=== PATIENT | male | born 1965 | race Caucasian/White ===

== ENCOUNTER 2024-02-01 07:48 | Outpatient (CLI) | payer OTHER, SELFPAY ==
--- NOTE | 2024-02-01 08:01 | CT_ITS ---
WS: [id number] CT LUMBAR SPINE, noncontrast. HISTORY: LOW BACK PAIN RADIATING DOWN THE LEGS TECHNIQUE: Contiguous 2.0 mm axial imaging are performed. Sagittal and coronal reformats are submitte d and reviewed. All CT scans at [facility] use at least one of these dose optimization techni ques: automated exposure control; mA and/or kV adjustment per patient size (includes targeted exams w here dose is matched to clinical indication); or iterative reconstruction. IV contrast: None DLP: 1295.50 mGy.cm COMPARISON: None available. 3.5 mm retrolisthesis of L2. 2 mm retrolisthesis of L1. L4 anterolisthesis by less than 2 mm. Disc sp aces are very mildly narrowed. No fractures. No pars defects. L1-2: No stenosis. Bilateral mild facet arthritis. L2-3: Mild annular disc bulging encroaching upon the subarticular recesses and central canal. No fora joseph stenosis. L3-4: Mild annular disc bulging encroaching upon the ventral thecal sac and subarticular recesses. Bi lateral facet joint arthritis and RIGHT ligamentum flavum hypertrophy. Mild central and subarticular recess stenosis. L4-5: Moderate annular disc bulging and marked facet and ligamentum flavum hypertrophy. Mild osteophy tic ridging. Bilateral facet joint arthropathy. Moderate to severe central, bilateral subarticular re cess and moderate foraminal stenosis. L5-S1: Mild annular disc bulging with bilateral facet joint arthritis. No severe central stenosis. Mo derate RIGHT foraminal stenosis. Mild atherosclerosis aorta. 3.7 x 3.4 cm LEFT adrenal adenoma. Hounsfield units are negative. Bilater al nonobstructing renal calcifications. CT/CT lumbar spine wo con* [id number] IMPRESSION: 1. No lumbar spine fracture. 2. L4-5: Moderate to severe central, bilateral subarticular recess and moderat e foraminal stenosis, multifactorial. 3. L5-S1: Moderate RIGHT foraminal stenosis. 4. L2-3 and L3-4: Mild central and subarticular recess stenosis. 5. LEFT adrenal adenoma.
== END 2024-02-01 07:49 | disposition home or self-care (01) ==
LOC: RAD 07:48
PROVIDERS: PCP Family Medicine; Visit Provider Family Medicine
DX: M48.07 Spinal stenosis, lumbosacral region (principal); D35.02 Benign neoplasm of left adrenal gland
CPT/HCPCS: 72131

== ENCOUNTER → 2024-03-03 13:00 | Outpatient (BNVA) | payer OTHER, SELFPAY | PROVIDERS: PCP Family Medicine; Visit Provider Specialist | DX: R20.0 Anesthesia of skin (principal); R20.2 Paresthesia of skin; M54.2 Cervicalgia; G56.03 Carpal tunnel syndrome, bilateral upper limbs | CPT/HCPCS: 95911 ==

== ENCOUNTER → 2024-12-20 07:40 | Outpatient (BNVA) | payer OTHER, SELFPAY | PROVIDERS: PCP Family Medicine; Visit Provider Anesthesiology Pain Medicine | DX: M54.9 Dorsalgia, unspecified (principal); M51.16 Intervertebral disc disorders with radiculopathy, lumbar region; M47.26 Other spondylosis with radiculopathy, lumbar region | CPT/HCPCS: 99204 ==

== ENCOUNTER → 2024-12-28 10:21 | Outpatient (BNVA) | payer OTHER, SELFPAY | PROVIDERS: PCP Family Medicine; Visit Provider Anesthesiology Pain Medicine | DX: M47.816 Spondylosis without myelopathy or radiculopathy, lumbar region (principal); M54.9 Dorsalgia, unspecified | CPT/HCPCS: 64493; 64494; 64495; J1010; J9999 ==

== ENCOUNTER → 2024-12-29 09:58 | Outpatient (BNVA) | payer OTHER, SELFPAY | PROVIDERS: PCP Family Medicine; Visit Provider Podiatrist Foot & Ankle Surgery | DX: E11.42 Type 2 diabetes mellitus with diabetic polyneuropathy (principal); L60.3 Nail dystrophy; G62.9 Polyneuropathy, unspecified; E11.8 Type 2 diabetes mellitus with unspecified complications | CPT/HCPCS: 11721; 99213 ==

== ENCOUNTER → 2025-01-10 09:36 | Outpatient (BNVA) | payer OTHER, SELFPAY | PROVIDERS: PCP Family Medicine; Visit Provider Anesthesiology Pain Medicine | DX: M54.9 Dorsalgia, unspecified (principal); M47.816 Spondylosis without myelopathy or radiculopathy, lumbar region; M51.16 Intervertebral disc disorders with radiculopathy, lumbar region | CPT/HCPCS: 99214 ==

== ENCOUNTER → 2025-02-06 08:18 | Outpatient (BNVA) | payer OTHER, SELFPAY | PROVIDERS: PCP Family Medicine; Visit Provider Student in an Organized Health Care Education/Training Program | DX: Z12.11 Encounter for screening for malignant neoplasm of colon (principal) | CPT/HCPCS: 99204 ==

== ENCOUNTER → 2025-02-07 13:41 | Outpatient (BNVA) | payer OTHER, SELFPAY | PROVIDERS: PCP Family Medicine; Visit Provider Anesthesiology Pain Medicine | DX: M47.816 Spondylosis without myelopathy or radiculopathy, lumbar region (principal); M54.9 Dorsalgia, unspecified | CPT/HCPCS: 64493; 64494; 64495; J3490; J9999 ==

== ENCOUNTER → 2025-02-13 13:22 | Outpatient (BNVA) | payer OTHER, SELFPAY | PROVIDERS: PCP Family Medicine; Visit Provider Anesthesiology Pain Medicine | DX: M54.9 Dorsalgia, unspecified (principal); M47.816 Spondylosis without myelopathy or radiculopathy, lumbar region; M51.16 Intervertebral disc disorders with radiculopathy, lumbar region | CPT/HCPCS: 99214 ==

== ENCOUNTER 2025-02-16 09:03 | Oncology outpatient (recurring) (ONCR) | payer OTHER, SELFPAY ==
[2025-02-07 16:35] LABS: Basophils % 0.2 %; Eosinophils # 0.1 10^3/uL (0.0-0.8); Eosinophils % 1.5 %; Hematocrit 48.3 % (37-53); Lymphocytes # 2.3 10^3/uL (0.8-4.8); Mean Corpuscular HGB Conc 33.7 g/dL (30-55); Mean Corpuscular Hemoglobin 29.7 pg (27-33); Mean Platelet Volume 10.2 fL (7.4-10.4); Monocytes # 0.6 10^3/uL (0.2-0.9); Monocytes % 9.1 %; Neutrophils # 3.56 10^3/uL (1.8-7.7); Nucleated Red Blood Cells % 0 %; Platelet Count 217 10^3/cmm (157-399); Red Blood Count 5.49 10^6/uL (3.85-5.65); Red Cell Distribution Width 16.4 % (12.1-15.1); White Blood Count 6.58 10^3/uL (3.29-11.43)
[2025-02-07 17:16] LABS: Alanine Aminotransferase 30 U/L (0-41); Albumin Level 4.4 g/dL (3.5-5.2); Alkaline Phosphatase 75 U/L (40-130); Aspartate Amino Transferase 22 U/L (0-40); Blood Urea Nitrogen 21 mg/dL (8-23); Calcium 8.8 mg/dL (8.5-10.5); Carbon Dioxide 22 mmol/L (22-29); Chloride 106 mmol/L (98-107); Globulin 2.8 g/dL (1.3-4.6); Glomerular Filtration Rate 85.8 mL/min (90-130); Glucose 87 mg/dL (65-115); Osmolality Calculated 294 mOsm/kg (285-295); Sodium 141 mmol/L (136-145); Total Bilirubin 0.2 mg/dL (0.15-1.2); Total Protein 7.2 g/dL (6.6-8.7)
[2025-02-07 17:42] LABS: Anion Gap 17.4 (5-19); Potassium 4.4 mmol/L (3.5-5.1)
[2025-02-07 20:16] LABS: Immunoglobulin IGA 142 mg/dL (70-400); Immunoglobulin IGG 1358 mg/dL (700-1600); Immunoglobulin IGM 60 mg/dL (40-230)
[2025-02-09 10:57] LABS: PROTEIN, TOTAL 7.2 g/dL (6.1-8.1)
[2025-02-10 11:35] LABS: KAPPA/LAMBDA LIGHT CHAINS FREE 0.61 (0.26-1.65)
[2025-02-10 12:25] LABS: ABNORMAL PROTEIN BAND 1 0.8 g/dL (NONE DETECTED); ABNORMAL PROTEIN BAND 2 0.2 g/dL (NONE DETECTED); ALBUMIN 4.5 g/dL (3.8-4.8); ALPHA 1 GLOBULIN 0.3 g/dL (0.2-0.3); ALPHA 2 GLOBULIN 0.5 g/dL (0.5-0.9); BETA 1 GLOBULIN 0.5 g/dL (0.4-0.6); BETA 2 GLOBULIN 0.3 g/dL (0.2-0.5); GAMMA GLOBULIN 1.3 g/dL (0.8-1.7)
[2025-02-17 07:49] LABS: CREATININE, 24 HOUR URINE 1.92 g/24 h (0.50-2.15); PROTEIN, TOTAL, 24 HR UR 279 mg/24 h (<150); Protein/Creatinine Ratio 0.145 (<0.100); Protein/Creatinine Ratio 145 mg/g creat (<100)
[2025-02-22 13:34] LABS: ALBUMIN 100 %; ALPHA-1-GLOBULINS 0 %; ALPHA-2-GLOBULINS 0 %; BETA GLOBULINS 0 %; GAMMA GLOBULINS 0 %
== END 2025-02-20 23:59 | disposition home or self-care (01) ==
PROVIDERS: PCP Family Medicine; Visit Provider Internal Medicine Medical Oncology
DX: D47.2 Monoclonal gammopathy (principal)
CPT/HCPCS: 36415; 64493; 64494; 64495; 80053; 82570; 82784; 83883; 84155; 84165; 84166; 85025; 86334; 86335; 99204; J3490; J9999

== ENCOUNTER 2025-02-20 10:31 | Day surgery (SDC) | payer OTHER, SELFPAY ==
[2025-02-20 10:42] VITALS: BP 142/83; PULSE 67; RESP 18; TEMP 36.2; O2SAT 93; BMI 38.0
--- NOTE | 2025-02-20 11:08 | ANES.PREANE2 ---
Pre-Anesthetic Assessment Height/Weight: Height 5 ft 10 in Weight 265 lb Temp Pulse Resp BP Pulse Ox O2 Del Method 97.2 F L 67 18 142/83 93 Room Air 02/20/25 10:42 02/20/25 10:42 02/20/25 10:42 02/20/25 10:42 02/20/25 10:42 02/20/25 10:42 Preop Diagnosis: Screening colonoscopy Operation Date: 02/20/25 12:00 Proposed Procedures p Colonoscopy 42855, G0121, z12.11(Not Applicable) - Tesfaye Owens MD Was Beta Shahram taken within 24 hours: Yes Was Clonidine taken within 24 hours: N/A Last intake: Intake Last Liquid Date 02/19/25 Last Liquid Time 23:00 Last Solid Date 02/18/25 Last Solid Time 18:00 Social No alcohol and No tobacco Exam alert, oriented x 3, clear to auscultation bilaterally and regular rate & rhythm Airway Submandibular: within normal limits Cervical ROM: within normal limits Mallampati: Class III Dentition: full Anesthetic Plan ASA status: 3 Anesthesia: MAC Other: No prior issues with anesthesia Completed bowel prep Chronic hypertension, on metoprolol. Preop BP 142/83 Type 2 diabetes, no insulin. Preop BS 140 Recent labs from 02/07/2025 reviewed acceptable for procedure today METs greater than 4 Plan for MAC anesthesia Medications/Allergies Home Medications ?Medication ?Instructions ?Recorded ?Confirmed ?Last Taken ?Type ammonium lactate 12 % lotion 1 applic topical DAILY 04/26/24 02/20/25 02/16/25 History cyclobenzaprine 10 mg tablet 10 mg PO TID 04/26/24 02/20/25 02/19/25 History diclofenac sodium 1 % topical gel 2 g topical QID 04/26/24 02/20/25 02/20/25 History (Arthritis Pain (diclofenac)) gabapentin 600 mg tablet 600 mg PO TID 04/26/24 02/20/25 02/19/25 History magnesium oxide 400 mg PO DAILY 04/26/24 02/20/25 02/19/25 History metoprolol succinate 25 mg 12.5 mg PO DAILY 04/26/24 02/20/25 02/20/25 History tablet,extended release 24 hr mirtazapine 15 mg tablet 15 mg PO DAILY 04/26/24 02/20/25 02/19/25 History omeprazole 20 mg capsule,delayed 20 mg PO DAILY 04/26/24 02/20/25 02/19/25 History release sildenafil 100 mg tablet 100 mg PO DAILY PRN Sexual Activity 04/26/24 02/20/25 Unknown History testosterone 1.62 % (20.25 mg/1.25 1 packet transdermal DAILY 04/26/24 02/20/25 02/16/25 History gram) transdermal gel packet diabetic shoes w/ inserts #1 ea 05/16/24 02/13/25 Unknown Rx hydrocodone 2.5 mg-acetaminophen 1 tab PO BID PRN Pain 12/20/24 02/20/25 02/16/25 History 325 mg tablet hydrocortisone 5 mg tablet 5 mg PO TID 12/29/24 02/20/25 02/19/25 History Allergies Allergy/AdvReac Type Severity Reaction Status Date / Time Penicillins Allergy Unresponsiv Verified 02/20/25 10:38 e [facility] Anesthesia Social History Smoking and tobacco/nicotine status: unknown if used tobacco/nicotine
[2025-02-20] MEDS: sodium chloride 0.9% 1,000 ML 15 ML IV (11:10)
--- NOTE | 2025-02-20 11:27 | W.PM.OPSUD ---
Surgery/Procedure H&P Update DATE OF PROCEDURE: February 20, 2025 DATE H&P PERFORMED: 02/06/25 H&P UPDATE INFORMATION: I have reviewed H&P completed within last 30 days, I have examined patient prior to procedure and No changes to prior documentation PREOP DIAGNOSIS: Screening colonoscopy PLANNED PROCEDURE: Operation Date: 02/20/25 12:00 Proposed Procedures p Colonoscopy 20711, G0121, z12.11(Not Applicable) - Tesfaye Owens MD
[2025-02-20 12:07] VITALS: BP 120/75; PULSE 66; RESP 20; TEMP 36.4; O2SAT 94
[2025-02-20 12:20] VITALS: BP 118/81; PULSE 65; RESP 17; O2SAT 94
== END 2025-02-20 12:32 | disposition home or self-care (01) ==
PROVIDERS: PCP Family Medicine; Visit Provider Student in an Organized Health Care Education/Training Program
PROC: 0DJD8ZZ Inspection of Lower Intestinal Tract, Via Natural or Artificial Opening Endoscopic (ICD-10-PCS; CPT 45378; principal; 2025-02-20 12:00)
DX: Z12.11 Encounter for screening for malignant neoplasm of colon (principal); K57.30 Diverticulosis of large intestine without perforation or abscess without bleeding; I10 Essential (primary) hypertension; E11.9 Type 2 diabetes mellitus without complications; Z79.899 Other long term (current) drug therapy; Z88.0 Allergy status to penicillin; Z87.891 Personal history of nicotine dependence
CPT/HCPCS: 45378; J2704; J7030; J9999

== ENCOUNTER 2025-02-21 14:00 | Oncology outpatient (recurring) (ONCR) | payer OTHER, SELFPAY | END 2025-03-23 23:59 | disposition home or self-care (01) | PROVIDERS: PCP Family Medicine; Visit Provider Internal Medicine Medical Oncology | DX: D47.2 Monoclonal gammopathy (principal); Z79.899 Other long term (current) drug therapy | CPT/HCPCS: 99213 ==

== ENCOUNTER → 2025-02-28 12:23 | Outpatient (BNVA) | payer OTHER, SELFPAY | PROVIDERS: PCP Family Medicine; Visit Provider Anesthesiology Pain Medicine | DX: M47.816 Spondylosis without myelopathy or radiculopathy, lumbar region (principal); M54.9 Dorsalgia, unspecified | CPT/HCPCS: 36416; 64635; 64636; 82962; J1100; J9999 ==

== ENCOUNTER → 2025-03-01 09:57 | Outpatient (BNVA) | payer OTHER, SELFPAY | PROVIDERS: PCP Family Medicine; Visit Provider Podiatrist Foot & Ankle Surgery | DX: E11.42 Type 2 diabetes mellitus with diabetic polyneuropathy (principal); L60.3 Nail dystrophy; L84 Corns and callosities; G62.9 Polyneuropathy, unspecified | CPT/HCPCS: 11055; 11721 ==

== ENCOUNTER → 2025-03-15 10:08 | Outpatient (BNVA) | payer OTHER, SELFPAY | PROVIDERS: PCP Family Medicine; Visit Provider Anesthesiology Pain Medicine | DX: M47.816 Spondylosis without myelopathy or radiculopathy, lumbar region (principal); E11.9 Type 2 diabetes mellitus without complications; Z01.818 Encounter for other preprocedural examination; M54.9 Dorsalgia, unspecified | CPT/HCPCS: 36416; 64635; 64636; 82962; J1100; J9999 ==

== ENCOUNTER → 2025-04-03 10:01 | Outpatient (BNVA) | payer OTHER, SELFPAY | PROVIDERS: PCP Family Medicine; Visit Provider Anesthesiology Pain Medicine | DX: M54.9 Dorsalgia, unspecified (principal); M47.816 Spondylosis without myelopathy or radiculopathy, lumbar region; M51.16 Intervertebral disc disorders with radiculopathy, lumbar region | CPT/HCPCS: 99214 ==

== ENCOUNTER → 2025-04-17 09:01 | Outpatient (BNVA) | payer OTHER, SELFPAY | PROVIDERS: PCP Family Medicine; Referring Provider Family Medicine; Visit Provider Anesthesiology Pain Medicine | DX: M54.2 Cervicalgia (principal); M54.9 Dorsalgia, unspecified; M47.816 Spondylosis without myelopathy or radiculopathy, lumbar region; M51.16 Intervertebral disc disorders with radiculopathy, lumbar region | CPT/HCPCS: 99214 ==

== ENCOUNTER → 2025-06-01 07:43 | Outpatient (BNVA) | payer OTHER, SELFPAY | PROVIDERS: PCP Family Medicine; Visit Provider Podiatrist Foot & Ankle Surgery | DX: E11.42 Type 2 diabetes mellitus with diabetic polyneuropathy (principal); L60.3 Nail dystrophy; E11.8 Type 2 diabetes mellitus with unspecified complications; G62.9 Polyneuropathy, unspecified | CPT/HCPCS: 11721 ==

== ENCOUNTER 2025-06-20 13:06 | Oncology outpatient (recurring) (ONCR) | payer OTHER, SELFPAY ==
[2025-06-20 13:21] LABS: Hematocrit 48.8 % (37-53); Hemoglobin 16.30 g/dL (11.27-16.99); Mean Corpuscular HGB Conc 33.4 g/dL (30-55); Mean Corpuscular Hemoglobin 29.1 pg (27-33); Mean Corpuscular Volume 87.0 fl (82-101); Nucleated Red Blood Cells % 0 %; Platelet Count 249 10^3/cmm (157-399); Red Blood Count 5.61 10^6/uL (3.85-5.65); White Blood Count 5.88 10^3/uL (3.29-11.43)
[2025-06-20 13:38] LABS: Alanine Aminotransferase 18 U/L (0-41); Albumin Level 4.3 g/dL (3.5-5.2); Alkaline Phosphatase 80 U/L (40-130); Anion Gap 17.1 (5-19); Aspartate Amino Transferase 22 U/L (0-40); Blood Urea Nitrogen 10 mg/dL (8-23); Calcium 8.7 mg/dL (8.5-10.5); Carbon Dioxide 24 mmol/L (22-29); Chloride 102 mmol/L (98-107); Globulin 3.0 g/dL (1.3-4.6); Glucose 92 mg/dL (65-115); Osmolality Calculated 287 mOsm/kg (285-295); Potassium 4.1 mmol/L (3.5-5.1); Sodium 139 mmol/L (136-145); Total Protein 7.3 g/dL (6.6-8.7)
[2025-06-21 08:15] LABS: PROTEIN, TOTAL 7.1 g/dL (6.1-8.1)
[2025-06-21 15:29] LABS: KAPPA LIGHT CHAIN, FREE, SERUM 17.9 mg/L (3.3-19.4); KAPPA/LAMBDA LIGHT CHAINS FREE 0.68 (0.26-1.65); LAMBDA LIGHT CHAIN, FREE, SERU 26.4 mg/L (5.7-26.3)
[2025-06-22 08:50] LABS: ALPHA 1 GLOBULIN 0.3 g/dL (0.2-0.3); ALPHA 2 GLOBULIN 0.5 g/dL (0.5-0.9); BETA 1 GLOBULIN 0.5 g/dL (0.4-0.6); BETA 2 GLOBULIN 0.3 g/dL (0.2-0.5)
== END 2025-06-23 23:59 | disposition home or self-care (01) ==
LOC: ONCMED 13:07
PROVIDERS: PCP Family Medicine; Visit Provider Internal Medicine Medical Oncology
DX: D47.2 Monoclonal gammopathy (principal)
CPT/HCPCS: 36415; 80053; 83883; 84155; 84165; 85025

== ENCOUNTER 2025-06-27 13:47 | Oncology outpatient (recurring) (ONCR) | payer OTHER, SELFPAY | END 2025-07-23 23:59 | disposition home or self-care (01) | PROVIDERS: PCP Family Medicine; Visit Provider Internal Medicine Medical Oncology | DX: D47.2 Monoclonal gammopathy (principal); R03.0 Elevated blood-pressure reading, without diagnosis of hypertension; Z87.891 Personal history of nicotine dependence | CPT/HCPCS: 99213 ==

== ENCOUNTER 2025-07-27 15:23 | Outpatient (RCR) | payer OTHER, SELFPAY | END 2025-08-23 23:59 | disposition home or self-care (01) | LOC: SPT 15:23 | PROVIDERS: PCP Family Medicine; Visit Provider Orthopaedic Surgery | DX: M48.062 Spinal stenosis, lumbar region with neurogenic claudication (principal); M54.51 Vertebrogenic low back pain | CPT/HCPCS: 97110; 97161 ==

== ENCOUNTER → 2025-08-22 07:59 | Outpatient (BNVA) | payer OTHER, SELFPAY | PROVIDERS: PCP Family Medicine; Visit Provider Podiatrist Foot & Ankle Surgery | DX: M79.672 Pain in left foot (principal); M25.572 Pain in left ankle and joints of left foot; E11.8 Type 2 diabetes mellitus with unspecified complications; L60.3 Nail dystrophy; G62.9 Polyneuropathy, unspecified; E11.9 Type 2 diabetes mellitus without complications; M19.072 Primary osteoarthritis, left ankle and foot | CPT/HCPCS: 73600; 73630 ==

== ENCOUNTER 2025-08-22 10:41 | Outpatient (CLI) | payer OTHER, SELFPAY | END 2025-08-22 10:42 | disposition home or self-care (01) | LOC: SPT 10:42 | PROVIDERS: PCP Family Medicine; Visit Provider Podiatrist Foot & Ankle Surgery | DX: Z46.89 Encounter for fitting and adjustment of other specified devices (principal); M76.829 Posterior tibial tendinitis, unspecified leg | CPT/HCPCS: L4361 ==